=== PATIENT | male | born 1995 | race African-American/Black ===

== ENCOUNTER 2023-06-18 14:57 | Emergency (ER) | payer MEDICAID ==
[~2023-06-18] VITALS: Ht 180.3 cm; Wt 103.4 kg
--- OUTSIDE RECORDS SUMMARY | ~2023-06-18 | XMS | Continuity of Care Document ---
Demographics + + + | Address | [address] | | | [place] [address] | + + + | Preferred Language | Unknown | + + + | Marital Status | Never | + + + | Adventism Affiliation | Unknown | + + + | Race | Unknown | + + + | Ethnic Group | Unknown | + + + Author + + + | Author | [facility] | + + + | Organization | [facility] | + + + | Address | [address] | | | [place] [address] | + + + | Phone | | + + + Care Team Providers + + + + | Care Screener Operator Name | Role | Phone | + + + + Unavailable | Unavailable | + + + + Allergies No information. Encounters No information. Functional Status No information. Immunizations No information. Medications No information. Problems + + + + | date | description | facility | + + + + | 2023-05-29 09:35 | UNILATERAL PRIMARY | [facility] | | | OSTEOARTHRITIS, LEFT KNEE | | + + + + | 2023-05-29 09:35 | EFFUSION, LEFT KNEE | [facility] | + + + + | 2023-05-29 09:35 | PAIN IN LEFT KNEE | [facility] | + + + + | 2023-05-29 09:35 | OTHER SPECIFIED | [facility] | | | POSTPROCEDURAL STATES | | + + + + Procedures No information. Results/Labs No information. Social History No information. Vital Signs No information."
--- OUTSIDE RECORDS SUMMARY | ~2023-06-18 | XMS | Continuity of Care Document ---
Demographics + + + | Address | [address] | | | [place] [address] | + + + | Preferred Language | Unknown | + + + | Marital Status | Never | + + + | Moravian Affiliation | Unknown | + + + | Race | Unknown | + + + | Ethnic Group | Unknown | + + + Author + + + | Author | [facility] | + + + | Organization | [facility] | + + + | Address | [address] | | | [place] [address] | + + + | Phone | | + + + Care Team Providers + + + + | Care Loan Secretary Name | Role | Phone | + [...]
--- OUTSIDE RECORDS SUMMARY | 2023-06-18 14:58 | XMS ---
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 My VISIT COUNT (12 MO.) 1 MO [place] TOTAL 1 NOTE: Visits indicate total known visits. ED/UCC VISIT TRACKING (12 MO.) 06/18/2023 14:[address] [facility] [place] TYPE: Emergency COMPLAINT: - BACK PAIN INPATIENT VISIT TRACKING (12 MO.) No inpatient visits to display in this time frame [email or web address]
[2023-06-18] MEDS ORDERED: DEXTROAMP-AMPHE15 MG PO (17:38)
[2023-06-18] MEDS ORDERED: BUPRENORPHIN-N1 EACH SL (17:38)
[2023-06-18] MEDS ORDERED: TRIAMCINOLONE A15 G4 TOP (17:38)
[2023-06-18] MEDS ORDERED: CYCLOBENZAPRINE10 MG PO (18:29)
[2023-06-18 18:37] VITALS: BP 136/84
== END 2023-06-18 18:37 | disposition home or self-care (01) ==
LOC: ED 14:57
DX: S39.012A Strain of muscle, fascia and tendon of lower back, initial encounter (principal); X58.XXXA Exposure to other specified factors, initial encounter; Z88.5 Allergy status to narcotic agent; Z88.6 Allergy status to analgesic agent; Z79.899 Other long term (current) drug therapy